=== PATIENT | female | born 1935 | race Caucasian/White ===

== ENCOUNTER → 2020-07-08 | Outpatient (CLI) | payer MEDICARE, BC ==
[~2020-07-08] MED LIST: BUPR75TA5 PO; DOCU-150 PO; HYDR1TAB15 PO; LOSA25TA PO; METH2.5T PO; MULT-18 PO; OXAP600T PO; PANT20TA58 PO; TRAM50TA PO; ZOLP5TAB PO
--- NOTE | 2020-07-08 15:38 | RAD ---
Sacrum and coccyx, 3 views INDICATION: Sacral back pain FINDINGS: Profound osteopenia. Bowel gas pattern obscures detail. Bilateral total hip arthroplasties are present. Incidental lumbar spinal degenerative changes also noted. No diastases of the sacroiliac joints is apparent. No acute fracture or aggressive appearing osseous lesions are seen. IMPRESSION: Osteopenia and lumbar spinal degenerative changes but no acute fracture in the sacrum or coccyx is shown by x-ray. Electronically signed by: Claudio Lopez MD (07/08/2020 3:36 PM) [id number]
== END | disposition home or self-care (01) ==
LOC: DXRAD 10:57
PROVIDERS: ATTEND Family Medicine
DX: M47.816 Spondylosis without myelopathy or radiculopathy, lumbar region (principal); M85.88 Other specified disorders of bone density and structure, other site; M53.3 Sacrococcygeal disorders, not elsewhere classified; Z96.643 Presence of artificial hip joint, bilateral
CPT/HCPCS: 72220